=== PATIENT | female | born 1975 ===

== ENCOUNTER 2020-09-18 09:43 | Observation (INO) ==
[~2020-09-18 09:43] MED LIST: HYDROmorphone PCA 20 MG/20 ML PCA.SYRING PCA SCH
[2020-09-18] MEDS ORDERED: ceFAZolin 1 GM X ONE DOSE (AddVan) IVPB (10:00)
[2020-09-18 10:10] LABS: ABS Basophils 0.1 10^3/ul (0-0.2); ABS Eosinophils 0.2 10^3/ul (0-0.6); ABS Lymphocytes 2.1 10^3/ul (1.0-4.8); ABS Monocytes 0.4 10^3/ul (0-0.8); ABS Neutrophils 5.1 10^3/ul (1.5-7.7); Hematocrit 44 % (35-47); Hemoglobin 15.5 g/dL (12.0-16.0); Mean Corpuscular HGB Conc 35 g/dL (31-36); Mean Corpuscular Hemoglobin 31 pg (27-31); Mean Corpuscular Volume 89 fL (80-97); Mean Platelet Volume 7.9 fL (7.4-10.4); Platelet Count 379 10^3/uL (150-450); Red Blood Count 4.94 10^6 /uL (3.70-4.87); Red Cell Distribution Width 13 % (10-15); White Blood Count 7.8 10^3/uL (3.5-10.8)
[2020-09-18 10:18] LABS: Activated Partial Thrombo Time 27.7 seconds (26.0-38.0); INR 0.91 (0.86-1.15)
[2020-09-18 10:26] LABS: Blood Urea Nitrogen 9 mg/dL (6-24); CO2 Carbon Dioxide 25 mmol/L (22-32); Calcium 9.3 mg/dL (8.6-10.3); Chloride 101 mmol/L (101-111); EGFR African American 82.7 (>60); EGFR Non-African American 68.3 (>60); Glucose 184 mg/dL (70-100); Sodium 136 mmol/L (135-145)
[2020-09-18] MEDS ORDERED: oxyCODONE SR 10 mg TAB ONE (10:31)
[2020-09-18] MEDS ORDERED: Ondansetron 4 mg VIAL 2 MG/ML 2 ml VIAL ONE ×2 (10:31→13:34)
[2020-09-18 10:33] LABS: HCG Pregnancy < 0.60 mIU/mL
[2020-09-18] MEDS ORDERED: Lidocaine 1% VIAL 10 MG/ML VIAL ONE (10:42)
[2020-09-18] MEDS ORDERED: Iohexol 350 (CONTRAST) 200 ML MDV IV ONE ×2 (10:43→12:14)
[2020-09-18] MEDS ORDERED: Heparin 2 UNITS/ML IVPREMIX 2,000 UNIT/1,000 ML BAG IV ONE (10:43)
[2020-09-18] MEDS ORDERED: Heparin 2 UNITS/ML IVPREMIX 1,000 UNIT/500 ML BAG IV ONE (10:58)
[2020-09-18] MEDS ORDERED: nitroGLYCERIN DRIP 25,000 MCG/250 ML BTL ONE (11:03)
[2020-09-18] MEDS ORDERED: Midazolam 5 mg/5 ml VIAL 1 mg/ml 5 ml VIAL (5 mg) ONE (11:15)
[2020-09-18] MEDS ORDERED: fentaNYL 250 mcg/5 ml 50 MCG/ML 5 ml VIAL (250 MCG) ONE (11:15)
[2020-09-18 11:29] LABS: Anion Gap 10 mmol/L (2-11)
[2020-09-18] MEDS ORDERED: Prochlorperazine 5 mg/ml 2 ml VIAL (10 mg) ONE (11:40)
[2020-09-18] MEDS ORDERED: Atropine 0.1 MG/ML 10 ml SYR (1 mg) ONE (11:47)
[2020-09-18] MEDS ORDERED: HYDROmorphone 1 MG/1 ML SYRINGE ONE (12:58)
[2020-09-18] MEDS: NS 0.9% 1000 ml BAG 1,000 ML IVPB SCH ×2 (13:50→23:08)
[2020-09-18] MEDS ORDERED: NS 0.9% 1,000 ML IV SCH (17:15)
[2020-09-18] MEDS: Ondansetron 4 mg VIAL 2 MG/ML 2 ml VIAL IV SCH (17:55)
[2020-09-19] MEDS: Ondansetron 4 mg VIAL 2 MG/ML 2 ml VIAL IV SCH ×2 (01:08→06:27)
[2020-09-19] MEDS ORDERED: HYDROcodone/ACETAMIN 5/325 mg TAB PO PRN (08:46)
[2020-09-19] MEDS ORDERED: Ketorolac 10 mg TAB (NF) PO SCH (12:00)
[2020-09-19 14:20] VITALS: BP 119/71
== END 2020-09-19 15:35 | disposition home or self-care (01) ==
LOC: CHICATH 09:43 → SSU 09:43
PROVIDERS: ADMIT Radiology Diagnostic Radiology; ATTEND Internal Medicine
PROC: ANG.UFE (2020-09-18 11:10)